=== PATIENT | male | born 1970 | race Caucasian/White ===

== ENCOUNTER 2023-01-01 05:13 | Day surgery (SDC) | payer OTHER ==
[2022-12-27 15:00] LABS: BASOPHILS # (AUTO) 0.1 X10'3 (0-0.2); BASOPHILS % (AUTO) 0.9 % (0-1); EOSINOPHILS # (AUTO) 0.2 X10'3 (0-0.9); EOSINOPHILS % (AUTO) 3.2 % (0-6); LYMPHOCYTES # (AUTO) 1.6 X10'3 (1.1-4.8); LYMPHOCYTES % (AUTO) 26.3 % (21-51); MEAN CORPUSCULAR HEMOGLOBIN 29.6 PG (27.0-31.0); MEAN CORPUSCULAR HGB CONC 33.4 g/dL (33.0-36.5); MEAN CORPUSCULAR VOLUME 88.5 FL (78-98); MEAN PLATELET VOLUME 9.2 FL (7.4-10.4); MONOCYTES # (AUTO) 0.5 X10'3 (0-0.9); MONOCYTES % (AUTO) 8.8 % (2-12); NEUTROPHILS # (AUTO) 3.7 X10'3 (1.8-7.7); NEUTROPHILS % (AUTO) 60.8 % (42-75); PRE OP HEMATOCRIT 46.3 % (42.0-52.0); PRE OP HEMOGLOBIN 15.5 g/dL (14.0-17.9); PRE OP PLATELET COUNT 172 X10'3 (140-440); PRE OP WHITE BLOOD COUNT 6.1 10'3 (4.8-10.8); RED BLOOD COUNT 5.23 X10'6 (4.70-6.10); RED CELL DISTRIBUTION WIDTH 13.9 % (11.5-14.5)
[2022-12-27 15:07] LABS: ALBUMIN 3.8 G/DL (3.4-5.0); ALBUMIN/GLOBULIN RATIO 1.1 (1.1-1.5); ALKALINE PHOSPHATASE 65 IU/L (46-116); BLOOD UREA NITROGEN 11 MG/DL (7-18); BUN/CREATININE RATIO 12.8 (10.0-20.0); CALCIUM 9.1 MG/DL (8.5-10.1); CHLORIDE 103 MMOL/L (99-107); CREATININE 0.86 MG/DL (0.60-1.10); PRE OP ALT 43 U/L (30-65); PRE OP ANION GAP 8 (8-16); PRE OP AST 26 U/L (10-37); PRE OP BILIRUB, TOTAL 0.4 MG/DL (0.0-1.0); PRE OP GLUCOSE 99 MG/DL (70-104); PRE OP POTASSIUM 3.8 MMOL/L (3.4-5.1); PRE OP SODIUM 139 MMOL/L (135-145); TOTAL CARBON DIOXIDE 27.8 MMOL/L (24-32); TOTAL PROTEIN 7.2 G/DL (6.4-8.2); eGFR > 90 ML/MIN
[~2023-01-01] VITALS: Ht 182.9 cm; Wt 86.2 kg
[2023-01-01] VITALS (9 sets, daily range): BP systolic 121–147; BP diastolic 74–92; PULSE 60–74; RESP 11–18; TEMP 98.3; O2SAT 96–100
[~2023-01-01 05:13] MED LIST: LISI-644 PO; ringers solution, lacted 1,000 ML IV SCH
[2023-01-01] MEDS ORDERED: cefazolin 2gm/D5W 100mL 100 ML IV ONE (05:30)
[2023-01-01] MEDS ORDERED: famotidine 20mg tablet PO ONE (05:30)
[2023-01-01] MEDS ORDERED: morphine 2 MG/ML inj. syringe IV PRN (07:20)
[2023-01-01] MEDS ORDERED: morphine 4 MG/ML inj SYRINge IV PRN (07:20)
[2023-01-01] MEDS ORDERED: hydrALAZINE 20mg/ml inj. IV PRN (07:20)
[2023-01-01] MEDS ORDERED: fentaNYL/PF 50MCG/1 ML 2ML syringe IV PRN ×2 (07:20)
[2023-01-01] MEDS ORDERED: labetalol 20mg/4ml (5mg/ml) syringe IV PRN (07:20)
[2023-01-01] MEDS ORDERED: ondansetron/PF 4mg/2ml inj IV PRN (07:20)
[2023-01-01] MEDS ORDERED: ringers solution, lacted 1,000 ML IV SCH (07:20)
[2023-01-01] MEDS ORDERED: LIDOcaine 1% 30ml preserv. free vial ONE (07:25)
[2023-01-01] MEDS ORDERED: BUPIVAcaine/PF 2.5 mg/ml (0.25%) 30ml vial ONE (07:25)
[2023-01-01] MEDS ORDERED: sevoflurane 250ml liquid IH ONE (07:39)
[2023-01-01] MEDS ORDERED: fentaNYL/PF 50MCG/1 ML 2ML syringe ONE (07:47)
[2023-01-01] MEDS ORDERED: midazolam 1 mg/ML 2ml injection ONE (07:48)
[2023-01-01] MEDS ORDERED: LIDOcaine 2% (20mg/ml) 5ml vial ONE (07:54)
[2023-01-01] MEDS ORDERED: propofol inj 20 ML IV ONE (07:54)
[2023-01-01] MEDS ORDERED: dexamethasone sod phosphate 4mg/ml inj. ONE (07:54)
[2023-01-01] MEDS ORDERED: neostigmine methylsulfate 1 MG/ML 10ml vial ONE (07:55)
[2023-01-01] MEDS ORDERED: rocuronium 10mg/ml inj IV ONE (07:55)
[2023-01-01] MEDS ORDERED: glycopyrrolate 0.2mg/ml inj ONE (07:55)
[2023-01-01] MEDS ORDERED: ondansetron/PF 4mg/2ml inj ONE (07:56)
--- NOTE | 2023-01-01 08:51 | NUR ---
Received from OR via [facility], accompanied by Anesthesiologist JACINTO and report given by Anesthesiolgist. PT ARRIVES ON 6L MASK SPO2 100%. LR RUNNING AT 100ML/HR THRU PIV IN LEFT HAND. PT IS ABLE TO ANSWER QUESTIONS APPROPRIATELY AND RADIAL PULSES ARE PALPABLE. SCD'S ARE ON. NO C/O PAIN/NAUSEA/DISTRESS AT THIS TIME. WILL CONTINUE TO ASSESS. Addendum: 01/01/23 at 0914 by Marlys Liang RN [employer]: [facility].
[2023-01-01] MEDS ORDERED: HYDROcodone/acetaminophen 5mg/325mg tablet PO PRN (09:05)
--- NOTE | 2023-01-01 10:11 | NUR ---
PATIENT STABLE FOR D/C PER MD ORDERS. ALL D/C PPWK WAS REV'D WITH PATIENT AND ALL QUESTIONS, COMMENTS, AND CONCERNS WERE ANSWERED AT THIS TIME. ADDITIONAL EDUCATION ON PROVIDED ON SPLINTING, NO BEARING DOWN AND PREVENTING CONSTIPATION. PATIENT VERBALIZED UNDERSTANDING. PATIENT WAS ABLE TO TRANSFER TO WHEELCHAIR WITHOUT LOSS OF BALANCE OR DIZZINESS. BANDAID TO ABD REMAINS CDI. PT WAS WHEELED OUT TO PRIVATE VEHICLE WHERE WAS WAITING WITHOUT INCIDENT.
== END 2023-01-01 10:11 | disposition home or self-care (01) ==
LOC: PAS 05:13
PROVIDERS: ATTEND Surgery
DX: K43.6 Other and unspecified ventral hernia with obstruction, without gangrene (principal); I10 Essential (primary) hypertension; Z91.040 Latex allergy status; Z79.899 Other long term (current) drug therapy; Z98.890 Other specified postprocedural states
CPT/HCPCS: 36415; 49592; 80053; 82948; 85025; 93005; C1781; J0690; J1100; J2250; J2270; J2405; J2704; J2710; J3010; J3490; J7030; J7120; Z7506; Z7508; Z7512; A4215; A4618; A7000